=== PATIENT | female | born 1985 | race Caucasian/White ===

== ENCOUNTER → 2020-01-26 11:50 | Outpatient (BNVA) | payer OTHER, SELFPAY | PROVIDERS: Family Provider Family Medicine; Visit Provider Nurse Practitioner Women's Health | DX: Z01.419 Encounter for gynecological examination (general) (routine) without abnormal findings (principal); K62.5 Hemorrhage of anus and rectum; Z01.411 Encounter for gynecological examination (general) (routine) with abnormal findings; E28.2 Polycystic ovarian syndrome; N76.3 Subacute and chronic vulvitis | CPT/HCPCS: 87624; 88175 ==

== ENCOUNTER → 2020-02-16 11:04 | Outpatient (BNVA) | payer OTHER, SELFPAY | PROVIDERS: Family Provider Family Medicine; Visit Provider Obstetrics & Gynecology | DX: R87.612 Low grade squamous intraepithelial lesion on cytologic smear of cervix (LGSIL) (principal) | CPT/HCPCS: 88305 ==

== ENCOUNTER → 2020-10-08 10:50 | Outpatient (BNVA) | payer OTHER, SELFPAY | PROVIDERS: Family Provider Family Medicine; Visit Provider Obstetrics & Gynecology | DX: Z34.80 Encounter for supervision of other normal pregnancy, unspecified trimester (principal) | CPT/HCPCS: 80307; 84315; 87086 ==

== ENCOUNTER → 2020-10-11 08:48 | Outpatient (BNVA) | payer OTHER, SELFPAY | PROVIDERS: Family Provider Family Medicine; Visit Provider Obstetrics & Gynecology | DX: Z34.80 Encounter for supervision of other normal pregnancy, unspecified trimester (principal); Z87.59 Personal history of other complications of pregnancy, childbirth and the puerperium | CPT/HCPCS: 80053; 82950; 84443; 85027; 86592; 86762; 86803; 86850; 86900; 87340 ==

== ENCOUNTER → 2020-10-18 00:01 | Outpatient (BNVA) | payer OTHER, SELFPAY | PROVIDERS: Family Provider Family Medicine; Visit Provider Obstetrics & Gynecology | DX: Z87.59 Personal history of other complications of pregnancy, childbirth and the puerperium (principal) | CPT/HCPCS: 84156 ==

== ENCOUNTER → 2020-10-22 09:50 | Outpatient (BNVA) | payer OTHER, SELFPAY | PROVIDERS: Family Provider Family Medicine; Visit Provider Obstetrics & Gynecology | DX: Z87.59 Personal history of other complications of pregnancy, childbirth and the puerperium (principal); E28.2 Polycystic ovarian syndrome; R87.612 Low grade squamous intraepithelial lesion on cytologic smear of cervix (LGSIL) | CPT/HCPCS: 84315; 87491; 87591 ==

== ENCOUNTER 2021-01-31 12:36 | Emergency (ER) | payer OTHER, SELFPAY ==
[2021-01-31 13:04] VITALS: BP 116/77; PULSE 93; RESP 18; TEMP 36.6; O2SAT 99; BMI 27.8
--- NOTE | 2021-01-31 13:28 | ED_ITS ---
HPI - General Adult General: Chief complaint: Needlestick/Injury/Exposure Stated complaint: NEEDLESTICK POKE AT WORK Time Seen by Provider: 01/31/21 13:26 History of Present Illness: HPI narrative: Patient got stuck in the left middle finger at the tip. She is not sure what it was but it does cause her finger to bleed she said it was wrapped up in some sheets she said she did know if it was glass or a needle. Patient here per hospital guidelines on needle stick protocol complaint: Puncture wound finger Onset (ago): minute(s) Location: left and upper extremity Severity: mild Review of Systems Narrative: Puncture wound to the left middle finger plantar surface from an unknown object that did cause bleeding. She is here for needlestick protocol. She does not desire any medication because she is currently [facility] PFSH: Medical History No pertinent past medical history Denies diabetes, asthma, hypertension, seizures, DVT/PE. PMD: None PCOS (polycystic ovarian syndrome) Diagnosed at the age of 23. Is always had irregular cycles about 3-4 cycles a year-had a sonogram at 23 that confirmed polycystic appearance of ovary and has been on Metformin since then with regular cycles. Surgical History S/P right knee arthroscopy (~2017) Dr. Ricardo at [facility] Family History Grandmother Breast cancer Paternal-- dx age 65 Lymphoma maternal Diabetes Paternal Grandfather Hypertension Paternal Lymphoma maternal Heart disease Paternal Family/Other Heart disease Paternal Great Uncles Denies family history of Colon cancer Ovarian cancer Hypercholesteremia Uterine cancer Thyroid disease Stroke Social History Additional social history: - Physical Exam Const: COMMON NORMALS: no acute distress Extremity: LEFT UPPER EXTREMITY: Yes hand & digits (Puncture wound left middle finger plantar surface no bleeding) Course Vital Signs: Vital signs: Vital Signs Temperature 97.9 F 01/31/21 13:04 Pulse Rate 93 01/31/21 13:04 Respiratory Rate 18 01/31/21 13:04 Blood Pressure 116/77 01/31/21 13:04 Pulse Oximetry 99 01/31/21 13:04 Discharge Plan Discharge Prescriptions: No Action famotidine [Pepcid] 20 mg tablet 20 mg PO DAILY PRNRF: 0 PNV #[id number] acid-dha 35 mg iron-5 mg iron-1 mg capsule 1 cap PO DAILY RF: 0 aspirin 81 mg tablet,delayed release (DR/EC) 81 mg PO DAILY Qty: 90 RF: 2 polyethylene glycol 3350 [Miralax] 17 gram/dose powder 17 g PO DAILY PRNRF: 0 Coding Level of Care Code ED Networking Administrator for Chg Rebeca
[2021-01-31 14:14] VITALS: BP 118/76; PULSE 81; RESP 16; O2SAT 98
[2021-01-31 15:24] LABS: HIV 1 & 2 Antibody Non-Reactive (Non-Reactiv); HIV 1 & 2 Antigen Non-Reactive (Non-Reactiv)
[2021-01-31 15:37] LABS: Hepatitis A Antibody IgM Non-Reactive (Nonreactive); Hepatitis B Core IgM Non-Reactive (Nonreactive); Hepatitis B Surface Antigen Non-Reactive (Nonreactive); Hepatitis C Virus Antibody Non-Reactive (Nonreactive)
== END 2021-01-31 14:16 | disposition home or self-care (01) ==
PROVIDERS: Emergency Provider Nurse Practitioner Family
DX: S61.233A Puncture wound without foreign body of left middle finger without damage to nail, initial encounter (principal); W46.0XXA Contact with hypodermic needle, initial encounter; Z79.82 Long term (current) use of aspirin
CPT/HCPCS: 36415; 80074; 87806; 99283

== ENCOUNTER → 2021-02-11 08:39 | Outpatient (BNVA) | payer OTHER, SELFPAY | PROVIDERS: Visit Provider Obstetrics & Gynecology | DX: Z34.80 Encounter for supervision of other normal pregnancy, unspecified trimester (principal) | CPT/HCPCS: 82950; 84315; 85025 ==

== ENCOUNTER → 2021-04-08 11:51 | Outpatient (BNVA) | payer OTHER, SELFPAY | PROVIDERS: Visit Provider Obstetrics & Gynecology | DX: Z34.90 Encounter for supervision of normal pregnancy, unspecified, unspecified trimester (principal); Z87.59 Personal history of other complications of pregnancy, childbirth and the puerperium | CPT/HCPCS: 84315; 87081 ==

== ENCOUNTER 2021-04-15 08:11 | Inpatient (IN) | payer OTHER, SELFPAY ==
[2021-04-15] VITALS (58 sets, daily range): BP systolic 86–143; BP diastolic 50–102; PULSE 48–103; RESP 16; TEMP 36.8; O2SAT 98–100; BMI 30.1
[2021-04-15] MEDS: lactated ringers 1,000 ML 999 ML IV ×2 (08:30→13:30)
--- NOTE | 2021-04-15 09:00 | PM.OPHPUD ---
Labor & Delivery H&P Update Date of Procedure: April 16, 2021 Date H&P Performed: 04/08/21 H&P update information: I have reviewed H&P completed within last 30 days, I have examined patient prior to procedure, Changes to prior documentation as noted here and H&P is in [facility] EMR on date indicated Changes to previous documentation: Patient in labor with rupture of membranes Admission Diagnosis:
[2021-04-15 09:15] LABS: Basophils % 0.4 %; Eosinophils % 0.4 %; Hematocrit 33.6 % (37.0-47.0); Hemoglobin 11.2 g/dL (11.5-15.3); Lymphocytes # 1.3 10^3/uL (0.8-4.8); Lymphocytes % 24.1 %; Mean Corpuscular HGB Conc 33.3 g/dL (30.0-36.0); Mean Corpuscular Hemoglobin 30.9 pg (28.0-34.0); Mean Corpuscular Volume 92.8 fL (81-99); Mean Platelet Volume 10.6 fL (7.4-10.4); Monocytes # 0.3 10^3/uL (0.2-0.9); Neutrophils # 3.76 10^3/uL (1.8-7.7); Neutrophils % 68.7 %; Nucleated Red Blood Cells % 0 %; Platelet Count 176 10^3/cmm (130-400); Red Blood Count 3.62 10^6/uL (4.1-5.3); Red Cell Distribution Width 12.7 % (12.1-15.1); White Blood Count 5.5 10^3/uL (4.0-10.0)
[2021-04-15] MEDS: oxytocin 30 UNIT/500 ML BAG IV (10:45)
--- NOTE | 2021-04-15 14:00 | P.ANESASSM_ITS ---
Pre-Anesthetic Assessment Pre-Anesthetic Assessment: Height/Weight: Height 1.8 m Weight 97.976 kg Pulse Resp BP Pulse Ox 78 16 121/71 100 04/15/21 13:57 04/15/21 08:08 04/15/21 13:57 04/15/21 13:48 Was Beta Alexis taken within 24 hours: N/A Was Clonidine taken within 24 hours: N/A Social: Social History: No alcohol and No tobacco Exam: Pre-Anes Outpt Exam: alert, oriented x 3, clear to auscultation bilaterally and regular rate & rhythm Airway: Submandibular: WNL Cervical ROM: WNL MP: 2 Dentition: Full History/ROS: No significant history except as noted CV/HEM: CV/HEM: Anemia and HTN Anesthetic Plan: ASA status: 2 Anesthesia: Regional (specify below) (Labor epidural) Risk of > 500 ml blood loss (7ml/kg in children): No Meds/Allergies Current Medications: Current Medications Generic Name Dose Route Start Last Admin Trade Name Freq PRN Reason Stop Dose Admin Lactated Ringer's 1,000 mls @ 999 m ls/hr 04/15/21 08:06 04/15/21 08:30 Lactated Ringers IV 999 mls/hr .Q1H1M PRN Administration Per L&D Rescitati on Protocol Oxytocin 30 unit in 500 ml s @ 1 mls/hr 04/15/21 10:15 04/15/21 11:30 Pitocin IV 4 milliunit/min .Q24H CHI 4 mls/hr Titration Protocol 1 MILLIUNIT/MIN Lactated Ringer's 1,000 mls @ 999 m ls/hr 04/15/21 13:11 04/15/21 13:30 Lactated Ringers IV 999 mls/hr .Q1H1M PRN Administration See label comment s PFSH Anesthesia PFSH: Medical History No pertinent past medical history Denies diabetes, asthma, hypertension, seizures, DVT/PE. PMD: None PCOS (polycystic ovarian syndrome) Diagnosed at the age of 23. Is always had irregular cycles about 3-4 cycles a year-had a sonogram at 23 that confirmed polycystic appearance of ovary and has been on Metformin since then with regular cycles. Surgical History S/P right knee arthroscopy (~2017) Dr. Ricardo at [facility] Family History Grandmother Breast cancer Paternal-- dx age 65 Lymphoma maternal Diabetes Paternal Grandfather Hypertension Paternal Lymphoma maternal Heart disease Paternal Family/Other Heart disease Paternal Great Uncles Denies family history of Colon cancer Ovarian cancer Hypercholesteremia Uterine cancer Thyroid disease Stroke Social History Additional social history: - Female Reproductive History: Date of last menstrual period: 07/28/20 Gravi da: 2 Data Anesthesia CBC & Chem 7: 04/15/21 08:15 Other Labs: Laboratory Results - last 48 hr 04/15/21 04/15/21 08:15 08:15 WBC 5.5 RBC 3.62 L Hgb 11.2 L Hct 33.6 L MCV 92.8 MCH 30.9 MCHC 33.3 RDW 12.7 Plt Count 176 MPV 10.6 H Neut % (Auto) 68.7 Lymph % (Auto) 24.1 [place] % (Auto) 6.0 Eos % (Auto) 0.4 Baso % (Auto) 0.4 Neut # (Auto) 3.76 Lymph # (Auto) 1.3 [place] # (Auto) 0.3 Eos # (Auto) 0.0 Baso # (Auto) 0.0 Nucleated RBC % (auto) 0 Nucleated RBCs # 0.0 Blood Type A Positive Rho(D) Type Positive / 4+ Antibody Screen Negative Cardiac Studies: No Data to Display
--- NOTE | 2021-04-15 14:02 | ANES.PROC ---
Anesthesia Procedures Procedure/Date: 04/15/21 Epidural: Time Out Performed: Yes Consents Signed: Procedure Consent Consent: requested by attending/covering physician, from patient, risks and benefits reviewed and patient agrees to proceed Lumbar Level: L3-L4 Epidural position: sitting Epidural procedure: sterile prep of area, 1% lidocaine to numb the area, 18 g needle, neg for paresthesia, test dose given, 1.5% xylocaine 1:200k epi, placed PCEA, no systemic response, sterile dressing applied and 0.2% Ropiavacaine @ mls/hr (13) Additional Comments: GARETH at 5cm, cath at 10cm.
[2021-04-15 15:48] LABS: Coronavirus Test Green County Not Detected
[2021-04-15] MEDS: dextrose 5%-lactated ringers 1,000 ML 125 ML IV (16:05)
[2021-04-15] MEDS: ondansetron 2 mg/ML SDV 2 mL 4 MG IVP (17:13)
--- NOTE | 2021-04-15 18:54 | PM.DELIVERY ---
Delivery Note: Date of delivery: April 15, 2021 - PRE-DELIVERY DIAGNOSIS: 35-year-old 2 para 1-0-0-1 At 37 weeks and 2 days Premature rupture of membranes GBS negative, Covid negative History of gestational hypertension-on aspirin-normotensive in this Anemia on iron POST-DELIVERY DIAGNOSIS: Vaginal delivery on 04/15/2021 PROCEDURE: Vaginal delivery on 04/15/2021 ANESTHESIA: Epidural anesthesia DELIVERING PHYSICIAN: Song Kelly FACOG PRE-DELIVERY COURSE: Ms. Haynes is a 35-year-old 2 para 100 at 37 weeks and 2 days who presented to labor and delivery with reports of leaking of fluid. On evaluation she was spontaneously ruptured and and report spontaneous rupture at 6 AM with clear fluid. Given the gross rupture she was admitted to labor and delivery. She was observed for 2 hours and although she had contractions every 7 minutes made no cervical change from 1, 50 and -3 station. tracing was overall category 1 with occasional variables which were not recurrent. She was started on Pitocin titrated to a maximum of 12 mIU and with that started to have regular contractions. At 1 PM she was 3 cm 60% and -2 station and was uncomfortable. An epidural was placed and she was comfortable after this. She was 4 cm at 3:15 PM, 8 cm at 4:15 PM and fully dilated at 4:40 PM. She started to have deep variables at this time and decision was made to set her up in lithotomy and start pushing DELIVERY NOTE: She was set up in lithotomy position and was pushing effectively. She was noted to be +3 station and continued pushing well. She had an episode of vagal response when she became hypotensive with blood pressure in the 80s over 40s-pulse was in the 90s and O2 saturation was 99% on room air. She was nauseous and felt dizzy. She was given an IV fluid bolus and Pitocin was stopped and within about 10 minutes she started to feel a lot better and blood pressure had returned to normal. She continued to push and was pushing effectively once she felt better. The head delivered in CHEMO position, nuchal cord x1 was present. It was tight and unable to be reduced. The posterior hand delivered followed by the posterior shoulder and the anterior shoulder delivered without any difficulty and the baby delivered through the cord without problems. The shoulders and rest of the body followed with her next push. The baby's mouth and nose were suctioned and the baby was placed on the mother's belly. Once cord pulsations stopped the cord was clamped and cut. The placenta delivered spontaneously intact with membranes and was discarded. The fundus was noted to be firm and well contracted. The vagina and cervix were inspected and no cervical or sulcal lacerations were noted. The perineum was intact except for a first-degree vaginal tear that extended to the right labia. The Griselda repaired with 3-0 Vicryl in a continuous fashion. Good hemostasis and reapproximation was obtained. She had some superficial separation of the skin in the perineum without involvement of the muscle and this was reapproximated. She did have a superficial left labial tear which was not repaired. Baby girl, Kell Tovar born at 5:38 PM on 04/15/2021 with 9/10, weighing 7 pounds 14 ounces, 3580 g, 20 inches long. Placenta was delivered spontaneously intact with membranes at 5:49 PM on 04/15/2021. Cotyledons were intact , centrally inserted umbilical cord with 3 vessels noted. Estimated blood loss 200 mL. Complications-none, both baby and mother were left to recover in a stable condition This documentation was created by [employer] rural mail contractor software (known for inherent rural mail contractor error). Every effort was made to assure accuracy of rural mail contractor. Any obvious errors or omissions should be clarified with the author of the document. Coding Level of Care Code Acute Family Service Caseworker for Chg Fwd History History History 2 Term 2 Miscarriages/Ectopic 0 0 Living Children 2 Other History: 2, Para 2001, x 2 1------> 11/11/2018---male (Cornelius), 8 lbs. 7 oz. (3819 g), 39-2/7 weeks gestation. Epidural. Vaginal delivery. Induction of labor at 39 weeks and 2 days for gestational hypertension. Second-degree perineal tear. Delivered by Dr. Song Kelly at [facility] in [place], [place]. Complicated by: Gestational hypertension and GBS. 2--> 04/15/2021--female,(Kell Tovar), 7 pounds 14 ounces(3580g), at 37 weeks and 2 days. Epidural. Vaginal delivery by Dr. Kelly at [facility]. First-degree vaginal tear and first-degree right labial tear which were repaired,
[2021-04-15] MEDS: ibuprofen 800 mg tablet PO (21:06)
--- NOTE | 2021-04-15 21:28 | ANE.PACU2 ---
Inpatient post-anesthesia follow up: Airway intact: Yes Vital signs: Temperature Pulse Rate 84 Respiratory Rate 16 Blood Pressure 107/54 Pulse Oximetry 100 Oxygen Delivery Me thod Room Air Oxygen Flow Rate Fraction of Inspir ed Oxygen Hydration adequate: Yes Nausea and vomiting: No Pain level: 1 Mental status: Baseline
[2021-04-15] MEDS: benzocaine-menthol 78 gm Canister 1 SPRAY TOPICAL (21:38)
--- NOTE | 2021-04-15 21:42 | PC.NURSE ---
pt given dermoplast at this time. baby vitals done at this time. pt rq to take bp cuff off; this nurse told patient we could and to press her call light when it alarmed to take bp again in one hour.
[2021-04-16 00:53] VITALS: BP 91/54; PULSE 67
[2021-04-16 02:43] VITALS: BP 101/61; PULSE 65
--- NOTE | 2021-04-16 06:12 | PC.NURSE ---
pt stated two roundings in a row that she was hurting more and more. interventions offered. accepted an ice pack both times.
--- NOTE | 2021-04-16 07:25 | P.DS_ITS ---
Discharge Providers CUSTOMER CARE COORDINATOR Date of Admission: 04/15/21 08:11 Date of Discharge: 04/16/21 Attending Provider at Admission: Song Schreiber MD Attending Provider at Discharge: Song Schreiber MD PRE-DELIVERY DIAGNOSIS: 35-year-old 2 para 1-0-0-1 At 37 weeks and 2 days Premature rupture of membranes GBS negative, Covid negative History of gestational hypertension-on aspirin-normotensive in this Anemia on iron POST-DELIVERY DIAGNOSIS: Vaginal delivery on 04/15/2021 PROCEDURE: Vaginal delivery on 04/15/2021 ANESTHESIA: Epidural anesthesia DELIVERING PHYSICIAN: Song Kelly FACOG PRE-DELIVERY COURSE: Ms. Haynes is a 35-year-old 2 para 100 at 37 weeks and 2 days who presented to labor and delivery with reports of leaking of fluid. On evaluation she was spontaneously ruptured and and report spontaneous rupture at 6 AM with clear fluid. Given the gross rupture she was admitted to labor and delivery. She was observed for 2 hours and although she had contractions every 7 minutes made no cervical change from 1, 50 and -3 station. tracing was overall category 1 with occasional variables which were not recurrent. She was started on Pitocin titrated to a maximum of 12 mIU and with that started to have regular contractions. At 1 PM she was 3 cm 60% and -2 station and was uncomfortable. An epidural was placed and she was comfortable after this. She was 4 cm at 3:15 PM, 8 cm at 4:15 PM and fully dilated at 4:40 PM. She started to have deep variables at this time and decision was made to set her up in lithotomy and start pushing DELIVERY NOTE: She was set up in lithotomy position and was pushing effectively. She was noted to be +3 station and continued pushing well. She had an episode of vagal response when she became hypotensive with blood pressure in the 80s over 40s- pulse was in the 90s and O2 saturation was 99% on room air. She was nauseous and felt dizzy. She was given an IV fluid bolus and Pitocin was stopped and within about 10 minutes she started to feel a lot better and blood pressure had returned to normal. She continued to push and was pushing effectively once she felt better. The head delivered in CHEMO position, nuchal cord x1 was present. It was tight and unable to be reduced. The posterior hand delivered followed by the posterior shoulder and the anterior shoulder delivered without any difficulty and the baby delivered through the cord without problems. The shoulders and rest of the body followed with her next push. The baby's mouth and nose were suctioned and the baby was placed on the mother's belly. Once cord pulsations stopped the cord was clamped and cut. The placenta delivered spontaneously intact with membranes and was discarded. The fundus was noted to be firm and well contracted. The vagina and cervix were inspected and no cervical or sulcal lacerations were noted. The perineum was intact except for a first-degree vaginal tear that extended to the right labia. The Griselda repaired with 3-0 Vicryl in a continuous fashion. Good hemostasis and reapproximation was obtained. She had some superficial separation of the skin in the perineum without involvement of the muscle and this was reapproximated. She did have a superficial left labial tear which was not repaired. Baby girl, Kell Tovar born at 5:38 PM on 04/15/2021 with 9/10, weighing 7 pounds 14 ounces, 3580 g, 20 inches long. Placenta was delivered spontaneously intact with membranes at 5:49 PM on 04/15/2021. Cotyledons were intact , centrally inserted umbilical cord with 3 vessels noted. Estimated blood loss 200 mL. Complications-none, both baby and mother were left to recover in a stable condition HOSPITAL COURSE: She underwent an uncomplicated vaginal delivery on 04/15/2021. She did well on day 0 and was ambulating well, tolerating regular diet, voiding freely, passing flatus. She was breast-feeding without difficulty and bonding well with her daughter. Pain was well-controlled with by mouth pain medication. She denied nausea, vomiting, fever, chills, shortness of breath, leg pain. She had moderate vaginal bleeding. On day # 1 she continued to do well with stable vital signs and stable hemoglobin at 10.3. She was discharged home on day 1 in a stable condition, as she desired early discharge. Warning signs for endometritis, mastitis, DVT/PE were reviewed with her. Post delivery activity restrictions were also reviewed with her at all her questions were answered to her satisfaction. She plans on using natural methods versus vasectomy versus pills for contraception which will be started at 6-week . EXAM AT DISCHARGE: Gen.: No acute distress Heart: S1-S2 heard, regular rate and rhythm Lungs: Clear to auscultation bilaterally Abdomen: Soft, fundus firm below umbilicus, Legs: No calf tenderness, trace pedal edema. CONDITION AT DISCHARGE: Stable This documentation was created by [employer] medical office worker software (known for inherent medical office worker error). Every effort was made to assure accuracy of medical office worker. Any obvious errors or omissions should be clarified with the author of the document. Reason for Visit Reason for Visit: SROM Information Peripartum Data: Delivery Method: Vaginal Physical Exam Urinary Catheter Management^: Mccallum: Cath Placed During This Visit: yes, but has since been removed by the nurse Reason for Continuing Indwelling Catheter: Other Urinary Catheter Date of Insertion: 04/15/21 Urinary Catheter Time of Insertion: 13:50 Date Urinary Catheter Removed: 04/15/21 Time Urinary Catheter Discontinued: 17:45 Discharge Data Data Completed and Pending: Pending at discharge Category Date Time Status Hemagram Timed Lab 04/16/21 06:49 Uncollected Labs from last 24 hours 04/15/21 04/15/21 04/15/21 08:40 08:15 08:15 WBC 5.5 RBC 3.62 L Hgb 11.2 L Hct 33.6 L MCV 92.8 MCH 30.9 MCHC 33.3 RDW 12.7 Plt Count 176 MPV 10.6 H Neut % (Auto) 68.7 Lymph % (Auto) 24.1 [place] % (Auto) 6.0 Eos % (Auto) 0.4 Baso % (Auto) 0.4 Neut # (Auto) 3.76 Lymph # (Auto) 1.3 [place] # (Auto) 0.3 Eos # (Auto) 0.0 Baso # (Auto) 0.0 Nucleated RBC % (a uto) 0 Nucleated RBCs # 0.0 Nasal/Oral COVID-1 9 PCR Not detected Blood Type A Positive Rho(D) Type Positive / 4+ Antibody Screen Negative Vitals: Last Vital Signs Temp 98.2 F 04/15/21 23:00 Pulse 65 04/16/21 02:43 Resp 16 04/15/21 08:08 BP 101/61 04/16/21 02:43 Pulse Ox 100 04/15/21 17:22 Discharge Plan Discharge Patient Disposition: Home Condition: Stable Prescriptions: New docusate sodium 100 mg Capsule 100 mg PO BID PRN (Reason: constipation) Qty: 30 RF: 0 ibuprofen 800 mg tablet 800 mg PO Q8H Qty: 30 RF: 0 Continued PNV #[id number] acid-dha 35 mg iron-5 mg iron-1 mg capsule 1 cap PO DAILY RF: 0 polyethylene glycol 3350 [Miralax] 17 gram/dose powder 17 g PO DAILY PRNRF: 0 Discontinued aspirin 81 mg tablet,delayed release (DR/EC) 81 mg PO DAILY Qty: 90 RF: 2 ferrous sulfate 325 mg (65 mg iron) tablet,delayed release (DR/EC) 325 mg PO BID Qty: 90 RF: 2 Discharge Orders: Discharge Order (Routine); Ordered 04/16/21 Ordered By: Song Schreiber Referrals: Song Schreiber MD [Physician] - (6-week with Dr. Kelly) Discharge Diet: Usual diet Discharge Activity: Limit activity as instructed Patient Instructions: Opioid Safety Activity Restrictions/Additional Instructions: Pelvic rest for 6 weeks, no heavy lifting for 6 weeks. Discharge Attestations CUSTOMER CARE COORDINATOR Time Spent in Discharge Care*: greater than 30 min Coding Level of Care Code Acute Anesthesiology Faculty for g Rebeca
[2021-04-16 07:48] LABS: Hematocrit 32.7 % (37.0-47.0); Hemoglobin 10.3 g/dL (11.5-15.3); Mean Corpuscular HGB Conc 31.5 g/dL (30.0-36.0); Mean Corpuscular Hemoglobin 30.8 pg (28.0-34.0); Mean Corpuscular Volume 97.9 fL (81-99); Mean Platelet Volume 10.8 fL (7.4-10.4); Platelet Count 163 10^3/cmm (130-400); Red Blood Count 3.34 10^6/uL (4.1-5.3); Red Cell Distribution Width 12.9 % (12.1-15.1); White Blood Count 7.4 10^3/uL (4.0-10.0)
[2021-04-16] MEDS: ibuprofen 800 mg tablet PO ×2 (09:11→15:51)
[2021-04-16] MEDS: docusate sodium 100 mg Capsule PO ×2 (09:11→17:54)
[2021-04-16] MEDS: prenatal vitamin Capsule 1 CAP PO (09:11)
[2021-04-16] MEDS: lanolin oint 7 gm 1 APPLIC TOPICAL (09:11)
[2021-04-16 09:13] VITALS: BP 95/57; PULSE 73
[2021-04-16 16:37] VITALS: BP 92/54; PULSE 71
[2021-04-16 16:39] VITALS: RESP 16
[2021-04-16 17:56] VITALS: RESP 16
== END 2021-04-16 18:20 | disposition home or self-care (01) | DRG 807 ==
LOC: OPOB 08:11 → OBGYN 08:11
PROVIDERS: Admitting Provider Obstetrics & Gynecology; Visit Provider Obstetrics & Gynecology
DX: O42.02 Full-term premature rupture of membranes, onset of labor within 24 hours of rupture (principal); Z37.0 Single live birth; O70.0 First degree perineal laceration during delivery; O99.02 Anemia complicating childbirth; D64.9 Anemia, unspecified; O69.81X0 Labor and delivery complicated by cord around neck, without compression, not applicable or unspecified; O99.284 Endocrine, nutritional and metabolic diseases complicating childbirth; E28.2 Polycystic ovarian syndrome; Z87.59 Personal history of other complications of pregnancy, childbirth and the puerperium; Z79.82 Long term (current) use of aspirin; Z3A.37 37 weeks gestation of pregnancy
CPT/HCPCS: 36415; 51702; 59025; 59409; 83986; 85025; 85027; 86850; 86900; 87635; 96374; 99211; J2405

== ENCOUNTER → 2021-05-28 09:44 | Outpatient (BNVA) | payer OTHER, SELFPAY | PROVIDERS: Visit Provider Obstetrics & Gynecology | DX: R87.612 Low grade squamous intraepithelial lesion on cytologic smear of cervix (LGSIL) (principal) | CPT/HCPCS: 88175 ==

== ENCOUNTER → 2021-07-29 17:20 | Outpatient (BNVA) | payer OTHER, SELFPAY | PROVIDERS: Visit Provider Obstetrics & Gynecology | DX: N90.9 Noninflammatory disorder of vulva and perineum, unspecified (principal) | CPT/HCPCS: 88305 ==

== ENCOUNTER → 2022-03-27 11:52 | Outpatient (BNVA) | payer OTHER, SELFPAY | PROVIDERS: Visit Provider Obstetrics & Gynecology | DX: R10.2 Pelvic and perineal pain (principal) | CPT/HCPCS: 76830 ==

== ENCOUNTER → 2022-04-21 10:30 | Outpatient (BNVA) | payer OTHER, SELFPAY | PROVIDERS: Visit Provider Obstetrics & Gynecology | DX: Z12.4 Encounter for screening for malignant neoplasm of cervix (principal); R87.612 Low grade squamous intraepithelial lesion on cytologic smear of cervix (LGSIL) | CPT/HCPCS: 87624 ==